=== PATIENT | female | born 1955 ===

== ENCOUNTER 2020-05-14 17:48 | Emergency (ER) | payer MEDICAID ==
[~2020-05-14] VITALS: Ht 154.9 cm; Wt 87.1 kg
--- NOTE | 2020-05-14 18:29 | NUR ---
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
--- NOTE | 2020-05-14 18:38 | NUR ---
PT C/O BODY ACHES, NAUSEA AND SOUR TASTE X10 DAYS, COUGH STARTED TODAY AND SOB. MONITORS PLACED ON PT, CALL LIGHT LEFT WITHIN REACH.
[2020-05-14] MEDS ORDERED: ACETAMINOPHEN 500 MG TABLET ONE (18:50)
[2020-05-14] MEDS ORDERED: ACETAMINOPHEN 500 MG TABLET PO ONE (19:00)
[2020-05-14 19:26] VITALS: BP 150/85
--- NOTE | 2020-05-14 19:28 | NUR ---
TASK RN: Patient given discharge instructions and they have confirmed that they understand the instructions. Patient ambulatory with steady gait. NAD, QUESTIONS ANSWERED APPROPRIATELY, EDUCATED ON ISOLATION AT HOME AND REASONS TO RETURN TO ED. PT DENIES ADDITIONAL NEEDS AT THIS TIME. NO PERSONAL BELONGINGS LEFT IN ROOM AT TIME OF DC.
== END 2020-05-14 19:32 | disposition home or self-care (01) ==
LOC: ED 18:31
DX: U07.1 COVID-19 (principal); R11.10 Vomiting, unspecified; R19.7 Diarrhea, unspecified; I10 Essential (primary) hypertension
CPT/HCPCS: 71045; 87635; 99284